=== PATIENT | male | born 1950 | race Caucasian/White ===

== ENCOUNTER 2024-04-18 13:01 | Emergency (ER) | payer OTHER, SELFPAY ==
[2024-04-18 13:08] VITALS: BP 130/70; PULSE 50; O2SAT 98
--- NOTE | 2024-04-18 13:50 | ECG_ITS ---
Test Reason : SYNCOPAL Blood Pressure : / mmHG Vent. Rate : 053 BPM Atrial Rate : 053 BPM P-R Int : 206 ms QRS Dur : 092 ms QT Int : 454 ms P-R-T Axes : 052 033 027 degrees QTc Int : 426 ms Sinus bradycardia Otherwise normal ECG When compared with ECG of 15-JAN-2004 18:15, No significant change was found Referred By: Generic ED Physician Electronically Signed By:VIOLA AMAYA MD
[2024-04-18 14:00] VITALS: BP 134/74; PULSE 57; RESP 16; TEMP 36.5; O2SAT 98; BMI 23.8
[2024-04-18 14:07] VITALS: PULSE 55; RESP 17; TEMP 36.5
--- NOTE | 2024-04-18 14:08 | PC.NURSE ---
Pt presents to ED from doctors office via EMS where he was getting blood work done. Pt reports hx of passing out due to needles, today had a possible vasovagal respose. Pt reports he felt faint and then blacked out, remained in a chair, no falls or head hit. Reports he almost feels back to normal now, still feels a little bit light-headed. Denies CP, SOB, N/V/D, or any recent illnesses. Alert and oriented, breathing even and unlabored, skin warm and dry. Pt on bedside cardiac montior, sinus tan. VSS
[2024-04-18 14:10] LABS: Glucose, Whole Blood 110 mg/dL (60-115)
[2024-04-18 14:22] LABS: MANUAL DIFF FLAG NO
[2024-04-18 14:23] LABS: Basophils Absolute Auto 0.1 X10*3/uL (0.0-0.2); Basophils Percent Auto 0.5 % (0-2); Eosinophils Absolute Auto 0.2 X10*3/uL (0.0-0.4); Eosinophils Percent Auto 1.3 % (0-4); Hematocrit 40.6 % (42.0-52.0); Hemoglobin 14.3 g/dl (14.0-18.0); Imm Gran Abs Auto 0.07 X10*3/uL (0.00-0.03); Imm Gran Pct Auto 0.5 % (0.0-0.4); Lymphocytes Absolute Auto 0.9 X10*3/uL (1.2-4.9); Lymphocytes Percent Auto 6.4 % (20-40); Mean Corpuscular HGB Conc 35.2 g/dl (31.0-36.0); Mean Corpuscular Hemoglobin 31.9 pg (27.0-33.0); Mean Corpuscular Volume 90.6 fL (80.0-98.0); Mean Platelet Volume 9.6 fL (9.4-12.4); Monocytes Absolute Auto 0.6 X10*3/uL (0.1-1.2); Monocytes Percent Auto 4.7 % (2-11); Neutrophils Absolute Auto 11.7 x10*3/uL (2.0-8.3); Neutrophils Percent Auto 86.6 % (45-73); Platelet Count 191 X10*3/uL (160-400); Red Blood Count 4.48 X10*6/uL (4.60-5.80); White Blood Count 13.5 X10*3/uL (4.8-10.8)
[2024-04-18 14:38] LABS: Alanine Aminotransferase 18 U/L (0-40); Albumin Level 4.3 g/dL (3.5-5.0); Alkaline Phosphatase 70 U/L (39-117); Anion Gap 9 (12-20); Aspartate Amino Transferase 26 U/L (5-37); Bilirubin Total 2.5 mg/dL (0.0-1.0); Blood Urea Nitrogen 14 mg/dL (9-16); Calcium 8.9 mg/dL (8.4-10.2); Carbon Dioxide 30 mmol/L (22-29); Chloride 107 mmol/L (96-108); Creatinine Clr Calc Pharmacy 63.8; Estimated Glomerular Filt Rate > 60; Glucose Random 122 mg/dL (60-115); Potassium 4.1 mmol/L (3.3-5.1); Sodium 142 mmol/L (135-145)
[2024-04-18 14:45] LABS: Troponin-I High Sensitivity < 2.7 ng/L (<3.5-35.0)
[2024-04-18 14:48] VITALS: O2SAT 98
--- NOTE | 2024-04-18 15:19 | ED.SYNCOPE ---
HPI - Syncope General Chief Complaint: Syncope Stated Complaint: SYNCOPE S/P BLOOD WORK DRAWN,NO FALL,FROM PCP OFF Time Seen by Provider: 04/18/24 14:45 Source: patient and EMS Mode of arrival: EMS Limitations: no limitations History of Present Illness ED Provider: Dr. Watts HPI narrative: Patient is going to have his yearly physical when he went to get his blood drawn and passed out having his blood drawn. no Chest pain no shortness of breath no head injury. MD complaint: felt faint and almost passed out Onset (ago): hour(s) Related Data Allergies Allergy/AdvReac Type Severity Reaction Status Date / Time No Known Allergies Allergy Verified 04/18/24 14:01 Review of Systems Review of Systems: Yes all other systems are reviewed and are negative Neurologic: Denies Sensory deficit (Neuro) [facility] Social History Social History Smoked in Last 30 Days: No Use of substances other than those prescribed or required for medical reasons: No Advance Directives: No Advance Directives Information Provided: No Do you have a plan to hurt others: No Plan Physical Exam Vital Signs: Vital Signs: Last Vital Signs Temp 97.7 F 04/18/24 14:07 Pulse 55 04/18/24 14:07 Resp 17 04/18/24 14:07 BP 134/74 04/18/24 14:00 Pulse Ox 98 04/18/24 14:48 O2 Del Method Room Air 04/18/24 14:48 BMI result Body Mass Index 23.8 Const: General: healthy appearing Nutritional Appearance: average body habitus Orientation/consciousness: oriented to person and patient oriented x3 Limitations: no limitations HEENT: Head: Yes normal to inspection Ears: external ears normal General nose exam: Normal external nose present Mouth: Normal oral and palatal mucosa present and oropharynx normal Throat: Yes posterior oropharynx normal Eyes: General: appearance normal, both eyes and all related structures Neck: Other: supple Neck: Yes normal visual inspection Chest: Chest palpation & inspection: normal inspection of the chest Resp: Auscultation: clear to auscultation bilaterally Cardio: Jugular venous distension: no JVD Rate: regular rate Rhythm: regular rhythm Heart sounds: S1 normal heart sound present and S2 normal heart sound present GI: Inspection: Yes normal to inspection Palpation (GI): Soft to palpation, nontender and No hepatosplenomegaly present Auscultation: normal bowel sounds : General: Yes no CVA tenderness Back/Spine/Pelvis: Back: no CVA tenderness Skin: General skin exam: no rashes or lesions noted Neuro: General: oriented to person and patient oriented x3 Cranial nerves: Yes CN's II-XII intact bilaterally Motor exam (neuro): 5/5 motor strength present throughout Sensory Exam: No Sensory deficit (Neuro) Extrem: General: Yes normal to inspection Psych: Appearance: grossly normal Course Reevaluation(s) Reevaluation #1: EKG labs and troponin negative will dc with vasovagal syncope Time: 15:21 Medical Decision Making Differential Diagnosis Differential Diagnoses: The differential diagnosis associated with the presentation includes (syncope, vasovagal syncope) Admission/Observation Consideration of admission/observation: Escalation of care including admission/observation considered (upon arrival patient was considered for admission) Lab Data MDM Lab Attestation statement: I reviewed the patient's lab results. (elevated WBC noted but not related to infection likely demargination from syncope) 04/18/24 14:17 04/18/24 14:17 Labs: Lab Results 04/18/24 04/18/24 Range/Units 13:59 14:17 WBC 13.5 H (4.8-10.8) X10*3/uL RBC 4.48 L (4.60-5.80) X10*6/uL Hgb 14.3 (14.0-18.0) g/dl Hct 40.6 L (42.0-52.0) % MCV 90.6 (80.0-98.0) fL MCH 31.9 (27.0-33.0) pg MCHC 35.2 (31.0-36.0) g/dl RDW 13.0 (11.0-16.0) % Plt Count 191 (160-400) X10*3/uL MPV 9.6 (9.4-12.4) fL Immature Gran % (Auto) 0.5 H (0.0-0.4) % Neut % (Auto) 86.6 H (45-73) % Lymph % (Auto) 6.4 L (20-40) % [place] % (Auto) 4.7 (2-11) % Eos % (Auto) 1.3 (0-4) % Baso % (Auto) 0.5 (0-2) % Lymph # (Auto) 0.9 L (1.2-4.9) X10*3/uL [place] # (Auto) 0.6 (0.1-1.2) X10*3/uL Eos # (Auto) 0.2 (0.0-0.4) X10*3/uL Baso # (Auto) 0.1 (0.0-0.2) X10*3/uL Abs Immat Gran (auto) 0.07 H (0.00-0.03) X10*3/uL Absolute Neuts (auto) 11.7 H (2.0-8.3) x10*3/uL Absolute Nucleated RBC 0.000 (0.0-0.012) X10*3/uL Nucleated RBC % (auto) 0.0 (0.0-0.2) /100WBC Sodium 142 (135-145) mmol/L Potassium 4.1 (3.3-5.1) mmol/L Chloride 107 (96-108) mmol/L Carbon Dioxide 30 H (22-29) mmol/L Anion Gap 9 L (12-20) BUN 14 (9-16) mg/dL Creatinine 1.03 (0.5-1.4) mg/dL Estim Creat Clear Calc 63.8 Estimated GFR > 60 POC Glucose 110 (60-115) mg/dL Random Glucose 122 H (60-115) mg/dL Calcium 8.9 (8.4-10.2) mg/dL Total Bilirubin 2.5 H (0.0-1.0) mg/dL AST 26 (5-37) U/L ALT 18 (0-40) U/L Alkaline Phosphatase 70 (39-117) U/L Troponin I High Sens < 2.7 (<3.5-35.0) ng/L Total Protein 7.0 (6.5-8.0) g/dL Albumin 4.3 (3.5-5.0) g/dL Independent Interpretation I performed an independent interpretation of an: EKG (sinus 50, no st or twave changes) Independent Historian Clinical information obtained from an independent historian. History obtained from or confirmed by: EMS Discharge Plan Discharge Clinical Impression: Vasovagal syncope Patient Disposition: Home, Self-Care Instructions: Syncope (ED) Referrals: Timi Ramirez MD [Primary Care Provider] - 5 days Print Language: Hungarian
[2024-04-18 15:33] VITALS: BP 134/82; PULSE 67; RESP 15; TEMP 36.6; O2SAT 98
== END 2024-04-18 15:43 | disposition home or self-care (01) ==
PROVIDERS: Emergency Provider Emergency Medicine; PCP Internal Medicine
DX: R55 Syncope and collapse (principal)
CPT/HCPCS: 36415; 80053; 82947; 84484; 85025; 93005; 99283; 99285

== ENCOUNTER → 2024-04-18 13:50 | Outpatient (BNV) | payer MEDICARE, SELFPAY | PROVIDERS: Emergency Provider Emergency Medicine; PCP Internal Medicine; Visit Provider Internal Medicine Cardiovascular Disease | DX: R00.1 Bradycardia, unspecified (principal) | CPT/HCPCS: 93010 ==

== ENCOUNTER 2024-10-07 15:52 | Emergency (ER) | payer OTHER, SELFPAY ==
--- NOTE | ~2024-10-07 | XR_ITS ---
EXAMINATION: XR CHEST CLINICAL INFORMATION: syncope COMPARISON: None available. TECHNIQUE: 2 views of the chest were obtained. FINDINGS: No significant abnormality is noted involving the heart, lungs, mediastinum, bony thorax or soft tissues. XR/XR chest 2V IMPRESSION: Unremarkable examination. Electronically signed by: Luis Miguel Ge MD 10/07/2024 07:15 PM [facility]
--- NOTE | 2024-10-07 16:17 | ECG_ITS ---
Test Reason : SYNCOPE Blood Pressure : / mmHG Vent. Rate : 069 BPM Atrial Rate : 069 BPM P-R Int : 190 ms QRS Dur : 080 ms QT Int : 400 ms P-R-T Axes : 056 025 041 degrees QTc Int : 428 ms Normal sinus rhythm Normal ECG When compared with ECG of 18-APR-2024 13:59, No significant change was found Referred By: Raheem Navarrete Electronically Signed By:VIOLA AMAYA MD
--- NOTE | 2024-10-07 16:17 | ED_ITS ---
HPI - General Adult General Chief complaint: Syncope Stated complaint: passing out Time Seen by Provider: 10/07/24 16:38 Source: patient Limitations: no limitations History of Present Illness HPI narrative: 73-year-old male who has a history of hyperlipidemia, hypothyroidism, presents for evaluation after an episode of syncope. Patient reports that at approximately 10:15 a.m. this morning he was at a when he passed out . Patient states that he did not have breakfast this morning because he was in a [place] but state that he did eat a kiwi. This is not a typical breakfast for him. Patient states that while he was at the , he began to feel a general sense of weakness as though he was going to pass out. He had been standing and sitting during this time. Patient states that as he was standing, the next thing he knows he was surrounded by other individuals. The patient has a text message from a physician medical claims assistant that was sitting behind him and witnessed the entire event. After reviewing this text message, the PA indicated that the patient had been standing, and slumped over the pew in front of him. He did not strike his head. There was LOC of approximately 2 minutes. The patient regained consciousness on his own. Blood pressure from EMS at that time was 100/70. Patient states he felt generally weak at that time. Denies any having any chest pain or shortness of breath. The patient has been eating and drinking normally. He has typically been ambulatory without any difficulty. Patient states he did have a similar episode while having a blood draw back in April of this year. He has not had any follow-up since that. He has not had any hypertensive medications. He does take tamsulosin but only in the evening and has been on this medication for quite some time. Patient states to have pus there the episode occurred, he went to the post luncheon where he ate food. Patient states he felt better during this time and [facility] the patient is provider was not available at this time and was therefore directed to the emergency department. Patient states that he is asymptomatic now and has been feeling well for the rest of the day. Related Data Allergies Allergy/AdvReac Type Severity Reaction Status Date / Time No Known Allergies Allergy Verified 10/07/24 16:21 Review of Systems 2 Constitutional: Constitutional: Denies chills, Denies fever(s) and Denies headache(s) Eyes: Eyes: Denies change in vision and Denies other (No redness.) ENT: Denies headache(s), Denies nasal congestion, Denies nasal discharge, Denies neck pain and Denies sore throat Cardiovascular: Cardiovascular: Denies chest pain, Denies palpitations, Denies dyspnea, Denies dyspnea on exertion and Denies orthopnea Respiratory: Respiratory: Denies cough, Denies dyspnea and Denies dyspnea on exertion Gastrointestinal: Gastrointestinal: Denies abdominal pain, Denies melena, Denies hematochezia, Denies diarrhea, Denies nausea and Denies vomiting Genitourinary: Genitourinary: Denies difficulty urinating, Denies dysuria and Denies urinary urgency Musculoskeletal: Musculoskeletal: Denies back pain, Denies muscle weakness, Denies neck pain and Denies numbness Integumentary/Breasts: Skin/Breast: Denies rash Neurologic: Denies headache(s), Denies focal weakness and Denies numbness Psychiatric: Psychiatric: Denies depression Endocrine: Endocrine: Denies palpitations [facility] Past Medical History Attestation statement: The following information was validated with the patient. [facility] Narrative: Hyperlipidemia, hypothyroidism Social History Social History Smoked in Last 30 Days: No Use of substances other than those prescribed or required for medical reasons: No Advance Directives: No Advance Directives Information Provided: No Do you have a plan to hurt others: No Plan Physical Exam ED Vital Signs: Vital Signs - 24 hr 10/07/24 16:18 10/07/24 17:19 10/07/24 17:24 Temperature 98.7 F Pulse Rate 75 70 70 Respiratory Rate 16 Blood Pressure 166/93 H 133/85 141/87 H Pulse Oximetry 95 Oxygen Delivery Method Room Air 10/07/24 17:24 10/07/24 17:27 Temperature Pulse Rate 72 67 Respiratory Rate 18 Blood Pressure 147/83 H 141/87 H Pulse Oximetry Oxygen Delivery Method BMI result Body Mass Index 24.4 Const Other: patient is well-appearing and in no acute distress. Orientation/consciousness: patient oriented x3 Eyes Other: Pupils are equal round reactive to light. Resp Other: Lung sounds clear throughout Cardio Other: regular rate and rhythm GI Other: abdomen is soft and nontender. There is no peritoneal signs. No CVAT. Skin Rashes: no rashes Neuro Other: Plastics Worker is 5/5 bilaterally. Patient ambulatory without difficulty. No pronator drift or Romberg. General: patient oriented x3 and CN's II-XI intact bilaterally NIH Stroke Scale Internal: Initial- Upon Arrival Level of Consciousness: Alert Level of Consciousness Questions: Answers both questions correctly Level of Consciousness Commands: Performs both tasks correctly Best Gaze: Normal Visual: No visual loss Facial Palsy: Normal Motor Arm (Right): No drift Motor Arm (Left): No drift Motor Leg (Right): No drift Motor Leg (Left): No drift Limb Ataxia: Absent Sensory: Normal Best Language: No aphasia Dysarthia: Normal Extinction and Inattention: No abnormality Score: 0 Course Course Course Narrative: RME, this is a rapid medical exam performed by Marshall Navarrete please refer to primary provider for complete H&P- 73 year old male presents for evaluation of a syncopal episode. He was standing at buddhist during a . he had a sudden loss of consciousness, he did not strike his head. He did not have any chest pain, shortness of breath, palpitations. He was unresponsive for about 2 minutes per bystanders before regaining consciousness. There was no seizure- like activity. The patient reports feeling much better currently after eating. He does have a history of vasovagal syncope. Plan for cardiac workup Reevaluation(s) Reevaluation #1: point of care ultrasound of the aorta indication is syncope aorta measures 2.49 cm at maximum at the mid aorta. IVC is normal subxiphoid view of the heart does not reveal any pericardial fluid. Time: 17:38 Medical Decision Making Medical Decision Making MDM Narrative: 73-year-old male presents after an epidural syncope. At this time it has been approximately 8 hours since the initial episode. He has not had any subsequent episodes. He has been feeling that he is at baseline. He has been ambulatory, ate food and has been driving since then. He has not had any chest pain or shortness of breath. Patient did have an episode of syncope back in April. Since this is the patient's 2nd episode, I have recommended that he follow up with a community midwife. A referral will be provided. In addition, consideration for the causes today may be due to the fact that the patient did not have anything to eat, which was the case last time when he had blood drawn. Slight incidence of medication related such as the tamsulosin however the patient has been on this medication for quite some time and has been asymptomatic. Reviewed all labs and imaging, no acute process. The patient is not orthostatic. There is no evidence of infectious process, viral swabs are negative. Cardiac enzymes are normal. EKG is sinus and chest x-ray is unremarkable. Patient has remained asymptomatic. Low suspicion for acute cardiac process. No evidence of aortic dissection or aneurysm. No risk factors for PE. The patient and I have discussed potential for admission however he would like to be discharged home and will follow up. I have reviewed all discharge instructions with the patient. He feels comfortable with discharge plan home. No further questions at this time. Differential Diagnosis Differential Diagnoses: The differential diagnosis associated with the presentation includes ACS Vasovagal syncope Arrhythmia Dehydration Metabolic abnormality Anemia Admission/Observation Consideration of admission/observation: Escalation of care including admission/observation considered Lab Data MDM Lab Attestation statement: I reviewed the patient's lab results. 10/07/24 16:32 10/07/24 16:32 Labs: Lab Results 10/07/24 10/07/24 Range/Units 16:32 16:33 WBC 10.6 (4.8-10.8) X10*3/uL RBC 4.39 L (4.60-5.80) X10*6/uL Hgb 14.0 (14.0-18.0) g/dl Hct 40.4 L (42.0-52.0) % MCV 92.0 (80.0-98.0) fL MCH 31.9 (27.0-33.0) pg MCHC 34.7 (31.0-36.0) g/dl RDW 12.6 (11.0-16.0) % Plt Count 199 (160-400) X10*3/uL MPV 9.7 (9.4-12.4) fL Immature Gran % (Auto) 0.3 (0.0-0.4) % Neut % (Auto) 88.4 H (45-73) % Lymph % (Auto) 7.5 L (20-40) % [place] % (Auto) 3.0 (2-11) % Eos % (Auto) 0.3 (0-4) % Baso % (Auto) 0.5 (0-2) % Lymph # (Auto) 0.8 L (1.2-4.9) X10*3/uL [place] # (Auto) 0.3 (0.1-1.2) X10*3/uL Eos # (Auto) 0.0 (0.0-0.4) X10*3/uL Baso # (Auto) 0.1 (0.0-0.2) X10*3/uL Abs Immat Gran (auto) 0.03 (0.00-0.03) X10*3/uL Absolute Neuts (auto) 9.4 H (2.0-8.3) x10*3/uL Absolute Nucleated RBC 0.000 (0.0-0.012) X10*3/uL Nucleated RBC % (auto) 0.0 (0.0-0.2) /100WBC PT 11.6 (10.9-12.4) SEC INR 1.0 (0.9-1.1) Sodium 136 (135-145) mmol/L Potassium 3.9 (3.3-5.1) mmol/L Chloride 103 (96-108) mmol/L Carbon Dioxide 24 (22-29) mmol/L Anion Gap 13 (12-20) BUN 17 H (9-16) mg/dL Creatinine 0.91 (0.5-1.4) mg/dL Estim Creat Clear Calc 74.6 Estimated GFR > 60 Random Glucose 131 H (60-115) mg/dL Calcium 8.6 (8.4-10.2) mg/dL Total Bilirubin 2.0 H (0.0-1.0) mg/dL AST 36 (5-37) U/L ALT 34 (0-40) U/L Alkaline Phosphatase 91 (39-117) U/L Troponin I High Sens < 2.7 (<3.5-35.0) ng/L B-Natriuretic Peptide < 10 (<100) pg/mL Total Protein 7.0 (6.5-8.0) g/dL Albumin 4.4 (3.5-5.0) g/dL Lipase 18 (8-78) U/L Influenza Type A (PCR) NEGATIVE (Negative) Influenza Type B (PCR) NEGATIVE (Negative) RSV RNA Qual (PCR) NEGATIVE (Negative) SARS-CoV-2 RNA (RT-PCR) NEGATIVE (Negative) Independent Interpretation I performed an independent interpretation of an: EKG Interpretation: 69 beats per minute without any acute ischemic changes. Radiology Impression Radiologist Impression: Chest x-ray without any acute process. Discharge Plan Discharge Clinical Impression: Vasovagal syncope Patient Disposition: Home, Self-Care Instructions: Syncope (ED) Additional Instructions: Rest. Avoid strenuous activity. Be sure to eat regular meals. Follow-up with cardiology referral, Dr. Gee. Follow-up with your primary care provider. Call this week to schedule a follow-up appointment. Return to the emergency department if you have any worsening of symptoms, or any concerns. Get well soon! Referrals: Farhan Gee MD [Physician] - 2 weeks (Syncope) Print Language: Thai
[2024-10-07 16:18] VITALS: BP 166/93; PULSE 75; RESP 16; TEMP 37.1; O2SAT 95; BMI 24.4
[2024-10-07 16:37] LABS: MANUAL DIFF FLAG NO
[2024-10-07 16:39] LABS: Basophils Absolute Auto 0.1 X10*3/uL (0.0-0.2); Basophils Percent Auto 0.5 % (0-2); Eosinophils Percent Auto 0.3 % (0-4); Hematocrit 40.4 % (42.0-52.0); Imm Gran Abs Auto 0.03 X10*3/uL (0.00-0.03); Imm Gran Pct Auto 0.3 % (0.0-0.4); Lymphocytes Absolute Auto 0.8 X10*3/uL (1.2-4.9); Lymphocytes Percent Auto 7.5 % (20-40); Mean Corpuscular HGB Conc 34.7 g/dl (31.0-36.0); Mean Corpuscular Hemoglobin 31.9 pg (27.0-33.0); Mean Platelet Volume 9.7 fL (9.4-12.4); Monocytes Absolute Auto 0.3 X10*3/uL (0.1-1.2); Neutrophils Absolute Auto 9.4 x10*3/uL (2.0-8.3); Neutrophils Percent Auto 88.4 % (45-73); Platelet Count 199 X10*3/uL (160-400); Red Blood Count 4.39 X10*6/uL (4.60-5.80); Red Cell Distribution Width 12.6 % (11.0-16.0); White Blood Count 10.6 X10*3/uL (4.8-10.8)
[2024-10-07 16:45] LABS: Prothrombin Time 11.6 SEC (10.9-12.4)
[2024-10-07 16:58] LABS: Alanine Aminotransferase 34 U/L (0-40); Albumin Level 4.4 g/dL (3.5-5.0); Alkaline Phosphatase 91 U/L (39-117); Anion Gap 13 (12-20); Aspartate Amino Transferase 36 U/L (5-37); Blood Urea Nitrogen 17 mg/dL (9-16); Calcium 8.6 mg/dL (8.4-10.2); Carbon Dioxide 24 mmol/L (22-29); Chloride 103 mmol/L (96-108); Creatinine Clr Calc Pharmacy 74.6; Estimated Glomerular Filt Rate > 60; Glucose Random 131 mg/dL (60-115); Lipase 18 U/L (8-78); Potassium 3.9 mmol/L (3.3-5.1); Sodium 136 mmol/L (135-145)
[2024-10-07 17:01] LABS: B Type Natriuretic Peptide < 10 pg/mL (<100)
[2024-10-07 17:04] LABS: Troponin-I High Sensitivity < 2.7 ng/L (<3.5-35.0)
[2024-10-07 17:19] VITALS: BP 133/85; PULSE 70
[2024-10-07 17:24] VITALS: BP 141/87; BP 147/83; PULSE 70; PULSE 72
[2024-10-07 17:27] VITALS: BP 141/87; PULSE 67; RESP 18
--- NOTE | 2024-10-07 17:31 | PC.NURSE ---
pt is alert and oriented, skin pwd, respirations even and unlabored, pt reports being at a and while standing in a pew had a syncopal episode, pt denies hitting his head-was told by the people around him that he did not head and was eased to the pew, pt denies thinners/asa reports not eating prior to going to the , pt denies pain just states feeling generally weak, vs stable and ns on the monitor
[2024-10-07 17:38] LABS: Influenza A PCR NEGATIVE (Negative); Influenza B PCR NEGATIVE (Negative); Resp Syncy Virus RNA Qual PCR NEGATIVE (Negative); SARS COV2 PCR INHOUSE NEGATIVE (Negative)
[2024-10-07 18:22] VITALS: BP 141/87; PULSE 67; RESP 18; TEMP -17.7; TEMP 0
== END 2024-10-07 18:23 | disposition home or self-care (01) ==
PROVIDERS: Physician Assistant; Emergency Provider Internal Medicine
DX: R55 Syncope and collapse (principal); Z03.818 Encounter for observation for suspected exposure to other biological agents ruled out; R53.1 Weakness; R29.700 NIHSS score 0
CPT/HCPCS: 0241U; 36415; 71046; 80053; 83690; 83880; 84484; 85025; 85610; 93005; 99283; 99285

== ENCOUNTER → 2024-10-07 16:17 | Outpatient (BNV) | payer MEDICARE, SELFPAY | PROVIDERS: Emergency Provider Internal Medicine; Visit Provider Internal Medicine Cardiovascular Disease | DX: R55 Syncope and collapse (principal) | CPT/HCPCS: 93010 ==

== ENCOUNTER 2025-05-04 15:38 | Emergency (ER) | payer OTHER, SELFPAY ==
--- NOTE | ~2025-05-04 | CT_ITS ---
EXAMINATION: CT HEAD WITHOUT CONTRAST CLINICAL INFORMATION: Headache, tinnitus COMPARISON: None available. TECHNIQUE: Contiguous axial imaging was performed from the skull base to vertex without intravenous administration of contrast. This CT examination was performed using dose optimization techniques as appropriate, variously including the following: *Automated exposure control *Adjustment of mA and/or kV according to patient size (this includes techniques or standardized protocols for targeted exams where dose is matched to indication/reason for exam; i.e. extremities or head) *Use of iterative reconstruction technique DLP: 814 mGY*cm FINDINGS: There is no acute ischemic change. There is no intracranial hemorrhage. There is no mass-effect or midline shift. Basal cisterns and ventricles are within normal limits for age/cerebral volume. Orbits are symmetrical and unremarkable. There is mucosal thickening throughout the ethmoid air cells. There is moderate opacification of the maxillary sinuses. There are no bony abnormalities. CT/CT head/brain wo IV con IMPRESSION: Chronic-appearing ethmoid and maxillary sinus disease. No acute intracranial abnormality. Electronically signed by: Phill Castro MD 05/04/2025 04:45 PM EDT
--- NOTE | 2025-05-04 15:44 | ED.GENADULT ---
HPI - General Adult General Chief complaint: General Medical Stated complaint: tightness in chest, fast pulse Time Seen by Provider: 05/04/25 21:02 Source: patient, RN notes reviewed and old records reviewed Mode of arrival: ambulatory Limitations: no limitations History of Present Illness ED Provider: Landon LEMUS narrative: 74-year-old male past medical history significant for hypothyroidism, allergies presents for evaluation of multiple complaints including headache, chest pressure and bilateral tinnitus. Patient reports his symptoms have been on and off for the last 4 years. They have been worsening over the last few months. He suspects that his symptoms may be caused by ?an infrasound machine that my upstairs neighbor has. He reports that he is unable to sleep in his bedroom and has been sleeping in his car at a [email or web address] parking lot. He reports chest pressure that is on and off also for several years. He does endorse some mild chest discomfort currently. Denies any shortness of breath, cough, fevers, chills pain Denies any abdominal pain, nausea vomiting. Related Data Allergies Allergy/AdvReac Type Severity Reaction Status Date / Time No Known Allergies Allergy Verified 05/04/25 15:51 Review of Systems Constitutional: Constitutional: Denies body ache(s), Denies chills and Denies fever(s) Eyes: Eyes: Denies exophthalmos ENT: Reports tinnitus Cardiovascular: Cardiovascular: Reports chest pain and Reports chest pain at rest Respiratory: Respiratory: Denies cough Gastrointestinal: Gastrointestinal: Denies abdominal pain, Denies nausea and Denies vomiting Musculoskeletal: Musculoskeletal: Denies back pain Integumentary/Breasts: Skin/Breast: Denies rash PMFSH Social History Social History Advance Directives: No Advance Directives Information Provided: Yes Do you have a plan to hurt others: No Plan Physical Exam ED Vital Signs: Vital Signs - 24 hr 05/04/25 15:46 05/04/25 20:02 Temperature 98 F 98.0 F Pulse Rate 91 74 Respiratory Rate 18 20 Blood Pressure 170/97 H 159/100 H Pulse Oximetry 94 95 Oxygen Delivery Method Room Air Room Air BMI result Body Mass Index 24.3 Const General: healthy appearing, comfortable, no acute distress, alert and awake Nutritional Appearance: well nourished Orientation/consciousness: patient oriented x3 HENMT Head: Yes normocephalic and Yes atraumatic Eyes Eyelids: Yes eyelids normal Conjunctivae: conjunctivae normal Sclerae: sclerae normal Corneas: corneas normal Pupils: Equal, round and reactive pupils present EOM: EOMs intact bilaterally Neck Neck: Yes full ROM Resp Effort & Inspection: normal respiratory effort, able to speak in complete sentences, no audible wheezes and not labored Auscultation: clear to auscultation bilaterally Cardio Rate: regular rate Rhythm: regular rhythm GI Inspection: No distended Palpation (GI): Soft to palpation, not firm, nontender, no guarding and not rigid Skin General skin exam: no rashes or lesions noted and elasticity normal Neuro General: patient oriented x3 Cranial nerves: Yes CN's II-XII intact bilaterally, Yes Equal, round and reactive pupils present and Yes Bilaterally intact EOM present Cognition (Neuro): normal cognition Extrem Other: Moving all extremities well without any obvious deformities Course Course Course Narrative: 05/04/25 1106 THOR Cowart This is a Rapid Medical Examination (RME) performed by Nishant Marrero PA-C in triage. Full HPI, ROS, assessment and treatment plan per primary provider in the Main ED. Hx: 74 yo M here for eval of insomnia x4 days. he has not been able to sleep due to a banging from his up stairs neighbor. also reports headache and tinnitis x months. has been googling infrasound , is concerned this is exacerbating his symptoms. PE/vitals: pressured speech. vitals are stable. Plan: labs ekg ct head Medical Decision Making Medical Decision Making [facility] Narrative: 74-year-old male presents for evaluation of headache, chest pain and bilateral ears ringing. These issues are chronic over the last 4 years. He suspects that they related to his apartment as they started when he moved into his new apartment. However his physical exam is reassuring, he has no neuro deficits, lungs are clear to auscultation, there is no crepitus on palpation of his chest. He has no abdominal pain, nausea vomiting. His labs are significant for a slightly elevated bilirubin of given there was no abdominal pain, tenderness on exam, nausea or vomiting I do not see any indication to pursue this further. He may follow up with his outpatient providers. His EKG is nonischemic, troponin is negative, he rules out for ACS. Blood pressure is slightly elevated but I have a low suspicion for aortic aneurysm. I offered to refer the patient to ENT for his tinnitus but he reports that this is useless because he has tried that 2 years ago. There was no evidence of infection of the ears bilaterally. A chest x-ray was considered but given the normal vital signs, reassuring labs and lung to auscultation this was deferred. Differential Diagnosis Differential Diagnoses: The differential diagnosis associated with the presentation includes Chest pain ACS Pleural effusion Pneumonia Acute headache Intracranial mass Tinnitus Meniere's disease Lab Data MDM Lab Attestation statement: I reviewed the patient's lab results. As above 05/04/25 16:01 05/04/25 16:01 Labs: Lab Results 05/04/25 Range/Units 16:01 WBC 6.9 (4.8-10.8) X10*3/uL RBC 4.63 (4.60-5.80) X10*6/uL Hgb 14.3 (14.0-18.0) g/dl Hct 41.9 L (42.0-52.0) % MCV 90.5 (80.0-98.0) fL MCH 30.9 (27.0-33.0) pg MCHC 34.1 (31.0-36.0) g/dl RDW 13.0 (11.0-16.0) % Plt Count 210 (160-400) X10*3/uL MPV 9.4 (9.4-12.4) fL Immature Gran % (Auto) 0.1 (0.0-0.4) % Neut % (Auto) 72.9 (45-73) % Lymph % (Auto) 17.8 L (20-40) % Cottle % (Auto) 7.1 (2-11) % Eos % (Auto) 1.4 (0-4) % Baso % (Auto) 0.7 (0-2) % Lymph # (Auto) 1.2 (1.2-4.9) X10*3/uL Cottle # (Auto) 0.5 (0.1-1.2) X10*3/uL Eos # (Auto) 0.1 (0.0-0.4) X10*3/uL Baso # (Auto) 0.1 (0.0-0.2) X10*3/uL Abs Immat Gran (auto) 0.01 (0.00-0.03) X10*3/uL Absolute Neuts (auto) 5.0 (2.0-8.3) x10*3/uL Absolute Nucleated RBC 0.000 (0.0-0.012) X10*3/uL Nucleated RBC % (auto) 0.0 (0.0-0.2) /100WBC Sodium 143 (135-145) mmol/L Potassium 3.9 (3.3-5.1) mmol/L Chloride 108 (96-108) mmol/L Carbon Dioxide 26 (22-29) mmol/L Anion Gap 13 (12-20) BUN 14 (9-16) mg/dL Creatinine 1.16 (0.5-1.4) mg/dL Estim Creat Clear Calc 54.0 Estimated GFR > 60 Random Glucose 90 (60-115) mg/dL Calcium 9.0 (8.4-10.2) mg/dL Magnesium 2.3 (1.6-2.6) mg/dL Total Bilirubin 2.9 H (0.0-1.0) mg/dL AST 34 (5-37) U/L ALT 25 (0-40) U/L Alkaline Phosphatase 74 (39-117) U/L Troponin I High Sens < 2.7 (<3.5-35.0) ng/L Total Protein 7.2 (6.5-8.0) g/dL Albumin 4.7 (3.5-5.0) g/dL Independent Interpretation I performed an independent interpretation of an: EKG Interpretation: Normal sinus rhythm with a rate of [address] segment elevation NC, nondiagnostic EKG Discharge Plan Discharge Clinical Impression: Chest pain, Bilateral tinnitus Patient Disposition: Home, Self-Care Instructions: Chest Pain (ED), Tinnitus (ED) Additional Instructions: Your workup in the ER today was reassuring. This includes your head CT, your EKG, your blood work. Your total bilirubin was slightly elevated today which you may follow-up with your primary doctor All of your the lab testing was reassuring Follow up with your primary doctor return for new or worsening symptoms Print Language: Cook Islander
--- NOTE | 2025-05-04 15:45 | ECG_ITS ---
Test Reason : CP Blood Pressure : */* mmHG Vent. Rate : 83 BPM Atrial Rate : 83 BPM P-R Int : 170 ms QRS Dur : 76 ms QT Int : 368 ms P-R-T Axes : 64 25 50 degrees QTcB Int : 432 ms Normal sinus rhythm Nonspecific ST abnormality Abnormal ECG When compared with ECG of 07-Oct-2024 16:16, No significant change was found Referred By: Kim Marrero Electronically Signed By: Horacio Aldana
[2025-05-04 15:46] VITALS: BP 170/97; PULSE 91; RESP 18; TEMP 36.6; O2SAT 94; BMI 24.3
[2025-05-04 16:06] LABS: MANUAL DIFF FLAG NO
[2025-05-04 16:08] LABS: Basophils Absolute Auto 0.1 X10*3/uL (0.0-0.2); Basophils Percent Auto 0.7 % (0-2); Eosinophils Absolute Auto 0.1 X10*3/uL (0.0-0.4); Eosinophils Percent Auto 1.4 % (0-4); Hematocrit 41.9 % (42.0-52.0); Hemoglobin 14.3 g/dl (14.0-18.0); Imm Gran Abs Auto 0.01 X10*3/uL (0.00-0.03); Imm Gran Pct Auto 0.1 % (0.0-0.4); Lymphocytes Absolute Auto 1.2 X10*3/uL (1.2-4.9); Lymphocytes Percent Auto 17.8 % (20-40); Mean Corpuscular HGB Conc 34.1 g/dl (31.0-36.0); Mean Corpuscular Hemoglobin 30.9 pg (27.0-33.0); Mean Corpuscular Volume 90.5 fL (80.0-98.0); Mean Platelet Volume 9.4 fL (9.4-12.4); Monocytes Absolute Auto 0.5 X10*3/uL (0.1-1.2); Monocytes Percent Auto 7.1 % (2-11); Neutrophils Percent Auto 72.9 % (45-73); Platelet Count 210 X10*3/uL (160-400); Red Blood Count 4.63 X10*6/uL (4.60-5.80); White Blood Count 6.9 X10*3/uL (4.8-10.8)
[2025-05-04 16:28] LABS: Alanine Aminotransferase 25 U/L (0-40); Albumin Level 4.7 g/dL (3.5-5.0); Alkaline Phosphatase 74 U/L (39-117); Anion Gap 13 (12-20); Aspartate Amino Transferase 34 U/L (5-37); Bilirubin Total 2.9 mg/dL (0.0-1.0); Blood Urea Nitrogen 14 mg/dL (9-16); Carbon Dioxide 26 mmol/L (22-29); Chloride 108 mmol/L (96-108); Estimated Glomerular Filt Rate > 60; Glucose Random 90 mg/dL (60-115); Magnesium 2.3 mg/dL (1.6-2.6); Potassium 3.9 mmol/L (3.3-5.1); Sodium 143 mmol/L (135-145); Total Protein 7.2 g/dL (6.5-8.0)
[2025-05-04 20:02] VITALS: BP 159/100; PULSE 74; RESP 20; TEMP 36.7; O2SAT 95
[2025-05-04 20:52] LABS: Troponin-I High Sensitivity < 2.7 ng/L (<3.5-35.0)
[2025-05-04 21:58] VITALS: BP 152/88; PULSE 63; RESP 12; TEMP 37.1; O2SAT 94
[2025-05-04 22:23] VITALS: BP 152/88; PULSE 63; RESP 18; TEMP 37.1; O2SAT 94
== END 2025-05-04 22:25 | disposition home or self-care (01) ==
PROVIDERS: Physician Assistant Medical; Emergency Provider Internal Medicine; PCP Internal Medicine
DX: R07.89 Other chest pain (principal); H93.13 Tinnitus, bilateral; R51.9 Headache, unspecified; Z79.899 Other long term (current) drug therapy
CPT/HCPCS: 36415; 70450; 80053; 83735; 84484; 85025; 93005; 99284

== ENCOUNTER → 2025-05-04 15:45 | Outpatient (BNV) | payer OTHER, SELFPAY | PROVIDERS: Emergency Provider Internal Medicine; PCP Internal Medicine; Visit Provider Internal Medicine Cardiovascular Disease | DX: R94.31 Abnormal electrocardiogram [ECG] [EKG] (principal); R07.9 Chest pain, unspecified | CPT/HCPCS: 93010 ==

== ENCOUNTER → 2025-05-04 15:50 | Outpatient (BNV) | payer OTHER, SELFPAY | PROVIDERS: PCP Internal Medicine; Visit Provider Radiology Diagnostic Radiology | DX: J32.2 Chronic ethmoidal sinusitis (principal) | CPT/HCPCS: 70450 ==

== ENCOUNTER 2025-06-06 15:37 | Outpatient (REF) | payer OTHER, SELFPAY ==
--- OUTSIDE RECORDS SUMMARY | 2025-06-06 16:26 | XMS_ITS | Patient Health Record ---
Author Organization [facility] Address [address] [place] [address] Care Team Providers Care Contact Lens Curve Grinder Name Role Phone Nicholas Lema Primary Care Provider Reynold Edward [phone] Allergies Allergen (clinical drug ingredient) Drug/Non Drug Allergy documented on EMR Reaction Allergy Type Onset Date Status seasonal allergies spring/fall (uncoded) Unknown Allergy Active Reason For Referral No Information Medications Medication SIG (Take, Route, Frequency, Duration) Notes Start Date End Date Status Fluticasone Propionate Not-Taking Tamsulosin HCl Activ e Levothyroxine Sodium 50 MCG TK 1 T PO QD Oral for 90 Active albuterol prn Not-Taking Lipitor 20 MG 1 tablet Orally Once a day Active Multivitamin Adult - as directed Orally Active Immunizations Vaccine Route Administration Date Status Comme nts Influenza Unknown 07/17/2019 Administered Problems Problem Type SNOMED Code ICD Code Onset Dates Problem Status W/U Status Risk Notes Problem [id number] Encounter for screening for malignant neoplasm of colon (Z12.11) Active confirmed Problem Pre-procedure evaluation check (841963648) Encounter for other preprocedural examination (Z01.818) Active confirmed Problem [id number] Pre-procedural examination (Z01.818) Active confirmed Plan Of Treatment Future Test Test Name Order Date COLONOSCOPY 03/01/2020 Insurance Providers Payer Name Payer Address Payer Phone Subscriber Number Group Number Insured Name Patient Relationship to Insured Coverage Start Date Coverage End Date [facility] [employer] [id number] [place] [id number] GIULIA VALVERDE Self - patient is the insured Medical (General) History Medical History History ICD Code Screening colonoscopy 11-19-19--negative except for mild diverticulosis and internal hemorrhoids; 3 negative Hemoccults in 08/2015 Denies [place],DM,CVA,renal disease. Mild asthma---inhaler prn. Hypothyroidism. Hyperlipidemia. BPH. Surgical History Surgery Date(Month/Year) Hemorrhoids
--- OUTSIDE RECORDS SUMMARY | 2025-06-06 16:26 | XMS_ITS | Encounter Summary ---
Author Organization [employer] Address [address] [place] [address] Care Team Providers Care Harvest Worker Field Crop Name Role Phone Unavailable Primary Care Provider Unavailabl e Encounter Details Date Type Department Care Team (Latest Contact Info) Description 01/17/2022 Abstract [facility] CONVERSIONS Dental, Provider, DDS Social History Tobacco Use Types Packs/Day Years Used Date Smoking Tobacco: Never Assessed Sex and Gender Information Value Date Recorded Sex Assigned at Male 09/15/2022 10:23 AM EDT Legal Sex Male 10:23 AM EDT Gender Identity Male 09/15/2022 10:23 AM EDT Sexual Orientation Straight 09/15/2022 10 :23 AM EDT documented as of this encounter Plan of Treatment Not on file documented as of this encounter Visit Diagnoses Not on filedocumented in this encounter
--- OUTSIDE RECORDS SUMMARY | 2025-06-06 16:26 | XMS_ITS | Encounter Summary ---
Author Organization [facility] Address [address] [place] [address] Care Team Providers Care Patient Service Coordinator Name Role Phone Timi Ramirez MD Primary Care Provider Encounter Details Date Type Department Care Team ([facility] st Contact Info) Description 05/04/2025 Telephone Adult Medicine [address] [phone] Bibiana Mena RN Social History Tobacco Use Types Packs/Day Years Used Date Smoking Tobacco: Never Smokeless Tobacco: Never Alcohol Use Standard Drinks/Week Comments Yes 1.7 (1 standard drink = 0.6 oz p ure alcohol) Housing Instability Answer Date Recorde d Are you worried that in the next 2 months you may not have stable housing? No 10/21/2024 Food Access & Nutrition Answer Date Rec orded Do you have access to a vari ety of food including fruits and vegetables? Yes 10/21/2024 Health Literacy Answer Date Recorded How often do you need to hav e someone help you when you read instructions, pamphlets, or other written material from your doctor or pharmacy? Never 10/21/2024 Caregiver: How often do you need to have someone help you when you read instructions, pamphlets, or other written material from your doctor or pharmacy? Not on file 10/21/2024 Financial Risk Answer Date Recorded How hard is it for you to pa y for the very basics like food, housing, medical care, and air conditioning / heating? Not very hard 10/21/2024 Transportation Answer Date Recorded Has the lack of transportati on kept you from meetings, work, or from getting things needed for daily living? No Has the lack of transportati on kept you from medical appointments or from getting medications? No 10/21/2024 Social Isolation Answer Date Recorded How often do you feel lonely or isolated from th ose around you? Never 10/21/2024 Food Risk Answer Date Recorded Within the past 12 months we worried whether our food would run out before we got money to buy more. Never true 10/21/2024 Within the past 12 months th e food we bought just didn't last and we didn't have money to get more. Never true 10/21/2024 Dependent Care Answer Date Recorded Do you need help finding or paying for care for your loved ones. For example, child development associate teacher or elderly care for an older adult? No 10/21/2024 Education Answer Date Recorded Do you think completing more education or training, like finishing a GED, going to college, or learning a trade, would be helpful for you? No 10/21/2024 Employment and Income Answer Date Recor ded During the last four weeks, have you been actively looking for work? No 10/21/2024 Living Situation Answer Date Recorded What is your living situation? 1 12/22/2023 Sex and Gender Information Value Date Recorded Sex Assigned at Male 06/01/2025 10:04 AM EDT Legal Sex Male 9:49 PM EST Gender Identity Male 06/01/2025 10:04 AM EDT Sexual Orientation Straight 06/01/2025 10 :04 AM EDT documented as of this encounter Progress Notes * Bibiana Mena RN - 05/04/2025 4:36 PM EDT At approx 3pm today pt. Walked into office , flustered and upset he states his neighbor is harassing him with the noises he is making at his condo and he can't sleep and is currently having left sided cp. Pt. Circled around with his hand the left sided of his chest I just want you to do a BP ' I brought pt. To holding unit to discuss symptoms pt. Skin warm and dry no evidence of breathing issues. I advised pt. If having left sided chest pain with all this stress he really needs to be evaluated in the ER. Pt. Denies weakness or sob . Pt. Refused . Dr. Ramirez in to speak with pt. Pt. Finally agreed to go to the hospital but was going to drive. He signed AMA documented in this encounter Plan of Treatment Upcoming Encounters Date Type Department Care Team (Late st Contact Info) Description 06/08/2025 3:00 PM EDT Office Visit Adult Medicine [facility] [address] [place] [address] Timi Ramirez MD [address] [place] [address] documented as of this encounter Visit Diagnoses Not on filedocumented in this encounter Additional Health Concerns Assessment Noted Time PHQ-9 Depression Total Score: 1 10/21/20 24 11:17 AM EST A fall risk assessment has been complete d for the patient 10/21/2024 11:18 AM EST documented as of this encounter Care Teams Patient Service Coordinator Relationship Specialty Start Date End Date Timi Ramirez MD [address] [place] [id number] PCP - General 09/23/22 documented as of this encounter
== END 2025-06-06 15:38 | disposition home or self-care (01) ==
LOC: HO.SH 15:37
PROVIDERS: Visit Provider Internal Medicine
DX: Z01.118 Encounter for examination of ears and hearing with other abnormal findings (principal); H90.41 Sensorineural hearing loss, unilateral, right ear, with unrestricted hearing on the contralateral side
CPT/HCPCS: 92557; 92567